=== PATIENT | female | born 1965 ===

== ENCOUNTER 2024-07-14 11:08 | Outpatient (CLI) | payer OTHER, SELFPAY | END 2024-07-14 11:09 | disposition home or self-care (01) | LOC: LKVREF 11:11 | PROVIDERS: PCP Family Medicine; Visit Provider Family Medicine | DX: M85.80 Other specified disorders of bone density and structure, unspecified site (principal); R79.89 Other specified abnormal findings of blood chemistry; Q89.01 Asplenia (congenital); G35 Multiple sclerosis; Z13.6 Encounter for screening for cardiovascular disorders | CPT/HCPCS: 80053; 80061; 84443 ==